=== PATIENT | female | born 1960 | race Caucasian/White ===

== ENCOUNTER 2016-09-06 05:29 | Day surgery (SDC) | payer OTHER ==
[2016-09-04 13:04] LABS: BASOPHILS 0.1 %; BASOPHILS ABSOLUTE 0.01 10/3/uL (0.0-0.16); EOSINOPHILS 0.3 %; EOSINOPHILS ABSOLUTE 0.03 10/3/uL (0.0-0.53); IMMATURE GRANULOCYTES 0.3 %; IMMATURE GRANULOCYTES ABSOLUTE 0.03 10/3/uL (0.0-0.11); LYMPHOCYTES 5.4 %; LYMPHOCYTES ABSOLUTE 0.48 10/3/uL (0.67-4.30); MEAN PLATELET VOLUME 9.9 fL (9.2-13.0); MONOCYTES 6.6 %; MONOCYTES ABSOLUTE 0.58 10/3/uL (0.21-1.20); NEUTROPHILS 87.3 %; NEUTROPHILS ABSOLUTE 7.72 10/3/uL (2.02-8.40); PLATELET COUNT 237 10/3/uL (150-400); RED CELL COUNT 3.93 10/6/uL (4.0-5.6)
[2016-09-04 13:05] LABS: HEMATOCRIT 37.1 % (36.0-48.0); HEMOGLOBIN 12.4 g/dL (12.0-16.0); MANUAL DIFF NO %; MEAN CORPUS HGB CONC 33.4 g/dL (32.0-36.0); MEAN CORPUSCULAR HEMOGLOB 31.6 pg (26.0-34.0); MEAN CORPUSCULAR VOLUME 94.4 fL (80-100); WHITE BLOOD CELLS 8.9 10/3/uL (4.5-10.5)
[2016-09-04 13:22] LABS: A/G RATIO 1.3 (0.7-1.9); ALBUMIN 3.5 G/DL (3.5-5.0); BUN (BLOOD UREA NITROGEN) 14 MG/DL (6-23); CALCIUM, SERUM 8.8 MG/DL (8.5-10.4); CHLORIDE, SERUM 104 MMOL/L (96-112); CO2 (CARBON DIOXIDE) 28 MMOL/L (24-34); GFR AFRICAN AMERICAN 72 ML/MIN (>=60); GFR NON AFRICAN AMERICAN 62 ML/MIN (>=60); GLOBULIN 2.6 G/DL (2.5-4.1); GLUCOSE, SERUM 141 MG/DL (60-99); POTASSIUM, SERUM 4.2 MMOL/L (3.5-5.3); SGOT(AST) 187 U/L (5-40); SGPT(ALT) 111 U/L (5-65); SODIUM, SERUM 142 MMOL/L (135-148); TOTAL BILIRUBIN 2.8 MG/DL (0-1.2); TOTAL PROTEIN 6.1 G/DL (6.0-8.5)
[2016-09-04 13:23] LABS: ALKALINE PHOSPHATASE 191 U/L (45-117)
--- NOTE | ~2016-09-06 | OP ---
Record Of Operation [facility] [address] [place]. [address] NAME: SETIVEN SIDHU : 56 STATUS : [facility]#: [id number] AGE: 56 ADM/REG DATE : 09/06/16 MR#: [id number] REPORT SERV DATE: 09/07/16 DICTATED BY: JOSIAH DICKINSON DATE: 09/07/16 REPORT STATUS : Draft TRANSCRIBED BY: MODPrudence DATE: 09/07/16 DATE OF PROCEDURE: 09/06/2016 PREOPERATIVE DIAGNOSES: 1. Cholelithiasis. 2. Status post gastric Iwona-en-Y bypass. POSTOPERATIVE DIAGNOSES: 1. Cholelithiasis. 2. Status post gastric Iwona-en-Y bypass. 3. Chronic cholecystitis. PROCEDURE PERFORMED: Laparoscopic cholecystectomy with intraoperative cholangiogram. ANESTHESIA: General. ESTIMATED BLOOD LOSS: Minimal. SPECIMEN REMOVED: Gallbladder. BRIEF HISTORY: Ms. Sidhu is a 56-year-old female who presents for recurrent bouts of epigastric and right upper quadrant abdominal pain. She has had a history of a gastric bypass done in 2005. This pain has been an ongoing problem for several months. Imaging has confirmed presence of gallstones and gallbladder wall thickening, but her common bile duct is not dilated. She presents for cholecystectomy. FINDINGS AT TIME OF PROCEDURE: Ms. Sidhu's gallbladder was distended and contained numerous small gallstones. On intraoperative cholangiogram, she did not have an obstructed biliary tree, however, in the distal common bile duct, there was a small questionable defect that seemed to disappear with magnification views and additional imaging, so it is possible that I flushed it through with saline and contrast, however, on initial views, there was some concern that it could be a possible small stone in that region that certainly was not obstructive and her biliary tree was not dilated. Limited examination of her remaining abdominal cavity revealed mesh from a previous ventral hernia replacement, this did not have any adhesions of bowel to the surface of the mesh, and there were some omental adhesions, but no other obvious pathology was identified. DETAILS OF PROCEDURE: Following informed consent, the patient was taken to the operative suite and after successful induction of general anesthesia, her abdomen was prepped and draped in usual sterile fashion. We made an initial incision in the subxiphoid location to avoid possible disrupting her mesh from a previous ventral hernia repair. Using Optiview trocar, we gained entry to the abdominal cavity under direct visualization without incident. The trocar was connected to insufflation tubing, peritoneal cavity was insufflated with carbon dioxide to a resting pressure of 15 mmHg. Laparoscope was introduced. The underlying liver and vascular structures were carefully inspected and noted to be free from injury from initial trocar insertion. Additional 5 mm trocars were placed in the Record Of Operation [address] [id number] NAME: ESTIVEN SIDHU : 56 STATUS : [facility] PAT#: [id number] AGE: 56 ADM/REG DATE : 09/06/16 MR#: [id number] REPORT SERV DATE: 09/07/16 DICTATED BY: JOSIAH DICKINSON DATE: 09/07/16 REPORT STATUS : Draft TRANSCRIBED BY: AUBRIE DATE: 09/07/16 periumbilical location under direct visualization. Her old mesh from her hernia repaired, incorporated nicely, and fortunately, there were no bowel adhesions to the mesh. 5 mm trocars were placed in the umbilicus under direct visualization and laparoscope was then positioned through this trocar. Two additional 5 mm trocars were placed in right upper quadrant under direct visualization without incident. The gallbladder was markedly distended. It was grasped at its fundus and retracted lateral in the cephalad direction toward the patient's right shoulder blade. The infundibulum of gallbladder was grasped and retracted inferiorly and laterally toward the patient's right anterior superior iliac spine. The cystic duct and cystic artery were dissected free from the overlying fatty peritoneal structures and we actually detached the lower portion of the gallbladder from the gallbladder fossa to ensure a nice clear critical view of safety. Once this was accomplished, the cystic artery was triply clipped and ligated, and divided with scissors and a clip was applied in the cystic duct-infundibular junction. A cystotomy was created and cholangiogram catheter was introduced in the cystic duct and held in place with a titanium clip. Mobile fluoroscopy was utilized and contrast was injected. Distal cystic duct, common bile duct, and hepatic radicals were all visualized and flow easily extravasated in the duodenum. There was no obvious biliary obstruction, however, in the distal common bile duct, there was a small questionable defect. Initially thought this was an air bubble filling defect and flushed additional saline and then did magnification views and a repeat cholangiogram and this seemed to dissipate and almost disappear. It made me question whether there was a stone that was flushed through or if this was even a gallstone at all. Since her biliary tree was not dilated and she clearly was not obstructed and her preop imaging did not show any ductal dilatation, I did not feel it was warranted to convert to an open common duct exploration. Unfortunately, the patient has had a gastric Iwona-en-Y bypass, which would make ERCP extremely difficult in the postop period, but I opted to proceed with completing cholecystectomy particularly since on repeat imaging it appeared the stone had passed or possibly was an air bubble filling defect that flushed through. I opted to just follow her closely as an outpatient, repeating her liver function test and going from there. We then removed the cholangiogram catheter and the cystic duct was triply clipped and ligated, and divided with scissors. The gallbladder is then dissected free from the gallbladder fossa using blunt dissection and cautery. It was placed inside an endoscopic retrieval pouch, removed through the 10 mm trocar site intact without incident. The gallbladder fossa was copiously irrigated. In the periphery, there was a small duct of Luschka. We were able to place a clip on this and this controlled any bile leakage. We copiously irrigated and watched this for several minutes and hemostasis noted be secured, and there was no evidence of further bile leakage from the duct of Luschka or gallbladder, cystic duct, or gallbladder fossa. 5 mm trocars were removed followed by 10 mm subxiphoid trocar. These sites were observed and hemostasis noted. Peritoneal cavity was desufflated. Laparoscope was removed. Fascia beneath the 10 mm umbilical trocar sites approximated with 0 Vicryl sutures. Skin edges approximated using 4-0 Monocryl subcuticular suture and Dermabond. At the completion of the case, all sponge and needle counts were correct. The patient was extubated and transferred to recovery room in satisfactory condition having suffered no apparent perioperative complications. SCK/MODL Record Of Operation [facility] [address] [facility] [place]. [address] NAME: ESTIVEN SIDHU : 56 STATUS : [facility]#: [id number] AGE: 56 ADM/REG DATE : 09/06/16 MR#: [id number] REPORT SERV DATE: 09/07/16 DICTATED BY: JOSIAH DICKINSON DATE: 09/07/16 REPORT STATUS : Draft TRANSCRIBED BY: HALLIEL DATE: 09/07/16 Josiah Dickinson M.D. / [id number] CC: Makenzie Amaya M.D.
[~2016-09-06 05:29] MED LIST: CELEBREX2 PO; COZAAR100 MG PO; FERROUS SULF325 M1 PO; LEXAPRO20 PO; MAX25 PO; NEUR300 PO; NORCO1 TA2 PO; PRILOSEC OTC20 MG PO; TEG100B PO; TRAZ100 PO
== END 2016-09-06 11:49 | disposition home or self-care (01) ==
LOC: SDC 05:29
PROVIDERS: Surgery
PROC: BF131ZZ Fluoroscopy of Gallbladder and Bile Ducts using Low Osmolar Contrast (ICD-10-PCS; 2016-09-06)
PROC: 0FT44ZZ Resection of Gallbladder, Percutaneous Endoscopic Approach (ICD-10-PCS; principal; 2016-09-06 07:00)
DX: K80.10 Calculus of gallbladder with chronic cholecystitis without obstruction (principal); F41.0 Panic disorder [episodic paroxysmal anxiety]; M25.569 Pain in unspecified knee; G89.29 Other chronic pain; K21.9 Gastro-esophageal reflux disease without esophagitis; F32.9 Major depressive disorder, single episode, unspecified; G50.0 Trigeminal neuralgia; I10 Essential (primary) hypertension; Z68.43 Body mass index [BMI] 50.0-59.9, adult; E66.01 Morbid (severe) obesity due to excess calories; Z98.84 Bariatric surgery status; Z98.890 Other specified postprocedural states; Z98.51 Tubal ligation status; Z90.710 Acquired absence of both cervix and uterus; Z79.899 Other long term (current) drug therapy; Z79.1 Long term (current) use of non-steroidal anti-inflammatories (NSAID); Z79.891 Long term (current) use of opiate analgesic
CPT/HCPCS: 74300; 80053; 85025; 88304; 93005; A9270-GY; J0330; J0690; J2250; J2405; J2710; J3010; Q9967